=== PATIENT | female | born 2000 | race African-American/Black ===

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

== ENCOUNTER 2018-02-19 18:53 | Emergency (ER) | payer SELFPAY ==
[~2018-02-19] VITALS: Ht 157.5 cm; Wt 52.5 kg
[2018-02-19 20:31] LABS: CLARITY URINE CLEAR (CLEAR); COLOR URINE YELLOW (YELLOW); KETONES URINE NEGATIVE (NEGATIVE); LEUKOCYTE ESTERASE URINE 1+ (NEGATIVE); NITRITE URINE NEGATIVE (NEGATIVE); OCCULT BLOOD URINE NEGATIVE (NEGATIVE); PH URINE 7.5 (4.5-8.0); PROTEIN URINE NEGATIVE (NEGATIVE); SPECIFIC GRAVITY URINE 1.014 (1.005-1.030)
[2018-02-19] MEDS ORDERED: IBUPROFEN 600MG TABLET PO ONE (21:45)
[2018-02-19] MEDS ORDERED: GABAPENTIN 100MG CAPSULE PO ONE (22:45)
[2018-02-20 00:09] VITALS: BP 103/72
== END 2018-02-20 00:42 | disposition home or self-care (01) ==
LOC: ER 19:52
DX: G50.0 Trigeminal neuralgia (principal); J32.2 Chronic ethmoidal sinusitis
CPT/HCPCS: 70450; 81003; 81025; 99285; Z7610

== ENCOUNTER 2018-04-22 22:35 | Emergency (ER) | payer MEDICAID ==
[~2018-04-22] VITALS: Ht 157.5 cm; Wt 52.2 kg
[2018-04-23] MEDS ORDERED: LIDOCAINE 5% PATCH TOP SCH (02:00)
[2018-04-23 05:17] VITALS: BP 109/76
== END 2018-04-23 05:20 | disposition home or self-care (01) ==
LOC: ER 04-23 03:55
DX: S46.911A Strain of unspecified muscle, fascia and tendon at shoulder and upper arm level, right arm, initial encounter (principal); F12.10 Cannabis abuse, uncomplicated; W19.XXXA Unspecified fall, initial encounter; Y93.89 Activity, other specified; Y92.89 Other specified places as the place of occurrence of the external cause; Y99.8 Other external cause status
CPT/HCPCS: 73030; 81025; 99284